=== PATIENT | female | born 1960 | race Asian ===

== ENCOUNTER 2017-09-22 13:33 | Outpatient (CLI) | payer OTHER | END 2017-09-22 13:34 | disposition home or self-care (01) | LOC: LABHHL 13:33 | PROVIDERS: ATTEND Surgery | DX: N60.02 Solitary cyst of left breast (principal) | CPT/HCPCS: 88112 ==

== ENCOUNTER 2017-12-14 14:47 | Outpatient (CLI) | payer OTHER | END 2017-12-14 14:48 | disposition home or self-care (01) | LOC: LABHHL 14:47 | PROVIDERS: ATTEND Surgery | DX: N60.82 Other benign mammary dysplasias of left breast (principal) | CPT/HCPCS: 88304; 88305 ==